=== PATIENT | female | born 1975 | race Hispanic/Latino ===

== ENCOUNTER 2016-12-18 02:29 | Inpatient (IN) | payer OTHER ==
[~2016-12-18] VITALS: Ht 154.9 cm; Wt 68.0 kg
[2016-12-18 02:41] VITALS: BP 121/86; PULSE 84; RESP 15; O2SAT 99
--- NOTE | 2016-12-18 03:04 | ED.REPORT ---
HPI-Abd Pain F 40 and Over Date of Service December 18, 2016 ED Provider: Flex Turner MD A healthy 41 year old female presents to the ED with worsening epigastric abdominal pain onset 2100, one hour after eating. Associated symptoms include nausea and vomiting. The patient denies diarrhea, dysuria, or other symptoms. She has had similar symptoms in the past, although less severe. Nursing Notes Stated Complaint: ABDOMINAL PAIN Chief Complaint: Female Abdominal Pain Nursing Notes Reviewed: Yes Allergies: Coded Allergies: codeine (Verified Allergy, Intermediate, RACING HEART, 12/18/16) General Time Seen by MD: 03:02 Chief Complaint Abdominal pain Hx Obtained From: Patient Arrived By: Walk-in Sudden in Onset?: No Onset Occurred: 5 - 8 hours ago Symptom Duration: Since onset Progression since Onset: Gradually worsening Location: : Epigastric Quality: Painful Severity: Current: Moderate Severity: Maximum: Moderate Pertinent Negative: Relieved by nothing Recent Healthcare: No recent doctor visit Similar Sx Previous: Yes Past Medical History Past Medical History Notes: PCP: Danish Noble Past Medical History Healthy otherwise Past Surgical History None reported Family History Gallstones Smoking History Current Some Day Smoker Social History Alcohol Use: Denies alcohol use Drug Use: Denies drug use Other Social History: Good social support Ambulatory Status Independent Review of Systems Constitutional: Denies: Fever Respiratory: Denies: Non-productive cough, Shortness of breath GI: Reports: Abdominal pain (Epigastric), Nausea, Vomiting, Denies: Diarrhea Female: Denies: Dysuria Complete sys rev & neg: except as marked. Physical Exam Vital Signs Vital Signs (First) Date Time Temp Pulse Resp B/P Pulse Ox O2 Delivery O2 Flow Rate FiO2 12/18/16 02:41 36.1 84 15 121/86 99 Room Air Initial VS: Reviewed, Vital signs normal Head / Eyes: Atraumatic, Normocephalic ENT: Conjunctiva normal, No scleral icterus Neck: Supple, Full range of motion Skin: Warm, Dry, No cyanosis Neurologic: Alert, Oriented, Nonfocal Psychiatric: Mood/affect normal, Behavior normal, Normal thought content General/Constitutional: Awake, Alert Respiratory / Chest: Breath sounds NL, Breath sounds = bilat, No respiratory distress Cardiovascular: Heart rate NL, Regular rhythm, Heart sounds NL Abdomen: Soft Tenderness/Guarding/Rebound: Positive: Tender epigastric Interpretation & Diagnostics URINE DIPSTICK: Bedside Urine Specific [place] * 1.010 Bedside Urine pH * 7 Bedside Urine Leukocyte Esterase * Negative Bedside Urine Nitrite * Negative Bedside Urine Protein * Negative Bedside Urine Glucose * Normal Bedside Urine Ketones * Negative Bedside Urine Urobilinogen * Normal Bedside Urine Bilirubin * Negative Bedside Urine Occult Blood * Trace Urine to Lab * Yes US ABDOMEN: 1. No ultrasound evidence of cholelithiasis or cholecystitis. Report transmitted to ED by radiologist Ole Aguirre M.D. at 12/18/2016 - 5: 34:16 AM PDT Lab Results Interpretation Result Diagram: 12/18/16 0325 12/18/16 0325 Test 12/18/16 03:25 12/18/16 04:50 White Blood Count 11.8th/mm3 (3.8-10.1) Red Blood Count 5.19mil/mm3 (3.90-5.20) Hemoglobin 14.5g/dL (12.0-15.6) Hematocrit 42.1% (35.0-46.0) Mean Corpuscular Volume 81.1fL (81-100) Mean Corpuscular Hemoglobin 27.9pg (27.0-35.0) Mean Corpuscular Hemoglobin Concent 34.4% (32.0-37.0) Red Cell Distribution Width 13.5% (12.3-15.4) Platelet Count 307bil/L (150-400) Neutrophils (%) (Auto) 73.0% (40-74) Lymphocytes (%) (Auto) 17.6% (14-46) Monocytes (%) (Auto) 8.0% (4-12) Eosinophils (%) (Auto) 0.8% (0-5) Basophils (%) (Auto) 0.3% (0-3) Sodium Level 139mEq/L (134-144) Potassium Level 4.0mEq/L (3.5-5.2) Chloride Level 102mEq/L (97-108) Carbon Dioxide Level 23mmol/L (18-29) Blood Urea Nitrogen 17mg/dL (6-24) Creatinine 0.64mg/dL (0.57-1.00) Estimat Glomerular Filtration Rate 146mL/min (>59) Glucose Level 143mg/dL (60-99) Calcium Level 10.0mg/dL (8.5-10.1) Magnesium Level 2.3mg/dL (1.6-2.6) Total Bilirubin 0.8mg/dL (0.0-1.2) Aspartate Amino Transf (AST/SGOT) 335U/L (0-50) Alanine Aminotransferase (ALT/SGPT) 150U/L (0-32) Alkaline Phosphatase 115U/L (25-150) Total Protein 8.2g/dL (6.4-8.4) Albumin 4.2g/dL (3.4-5.0) Lipase 30U/L (13-60) Hold Bassett Top Tube Received (Received) Urine Color Dark yellow (YELLOW) Urine Appearance Hazy (CLEAR,HAZY) Urine pH 7.5 (5.0-8.0) Urine Specific [place] 1.015 (1.003-1.035) Urine Protein Negativemg/dL (NEG,TRACE) Urine Glucose (UA) Negativemg/dL (NEGATIVE) Urine Ketones Negativemg/dL (NEGATIVE) Urine Occult Blood Trace (NEGATIVE) Urine Nitrite Negative (NEGATIVE) Urine Bilirubin Negative (NEGATIVE) Urine Urobilinogen 1.0mg/dL (NORMAL) Urine Leukocyte Esterase Negative (NEGATIVE) Urine RBC 0-2/hpf (0-2) Urine WBC 0-5/hpf (0-5) Urine Epithelial Cells Moderate/hpf (NONE-MOD) Urine Crystals None seen (NONE SEEN) Urine Bacteria Few/hpf (NONE-FEW) Urine Hyaline Casts None/lpf (NONE) Urine Granular Casts None seen (NONE SEEN) Urine Waxy Casts None seen (NONE SEEN) Urine Red Blood Cell Casts None seen (NONE SEEN) Urine White Blood Cell Casts None seen (NONE SEEN) Urine Mucus Present (None Seen) Urine Trichomonas None seen (NONE SEEN) Urine Yeast None (NONE SEEN) Urinalysis Comment None Urine Culture Reflexed Not indicated Hold Urine Received (Received) Lab Results Interpretation: Elevated white blood count, elevated transaminases, normal lipase Re-Eval/Medical Decision Med Decision/Clinical Course 41-year-old female who denies any history of drug use, alcohol use, or gallbladder disease. She has never been told that she has hepatitis. She presents now with upper abdominal pain, elevated transaminases, and mildly elevated white count. Ultrasound is negative for any gallbladder disease. CT is currently pending. Care will be turned over at change of shift to Dr. Gold Ruano. Re-Evaluation/Progress #1: Time of Eval: 04:07 Patient Status: Condition improved Re-Evaluation/Progress Note: Discussed with patient lab results and plan for US. She agrees with plan for care and all questions were addressed. Re-Evaluation/Progress #2: Time of Eval: 05:45 Patient Status: Condition improved Re-Evaluation/Progress Note: Discussed with patient US result and plan for CT with transfer of care to Dr. Pittman at change of shift. Patient agrees with plan for care and all questions were addressed. Counseled Regarding: Diagnosis, Lab results Discharge & Departure Shift Change Sign-Out Patient Care Transferred: Yes (Dr. Pittman) Discussed Complaint(s): Yes Laboratory Evaluation: Lab evaluation discussed Imaging Studies: Ordered, not yet done Response to Therapy: Improved Primary Impression: Abdominal pain Abdominal location: epigastric Qualified Code: R10.13 - Epigastric pain Referrals: Danish Noble ND (PCP) Care Transferred to: Dr. Pittman Care Transferred at: 06:00 [place] Attestation Portions of this note were transcribed by Suzette Theodore. I, Dr. Turner, personally performed the history, physical exam, and medical decision-making; I reviewed and confirmed the accuracy of the information in the transcribed note. Signed by: Velasquez Hoyt, 12/18/2016, 06:15 copies to: Danish Noble ND, Howard L MD December 18, 2016 03:04 SUZETTE THEODORE December 18, 2016 03:12
[2016-12-18] MEDS ORDERED: 0.9% Sodium Chloride 1,000 ML IV ONE (03:10)
[2016-12-18] MEDS ORDERED: Ondansetron 2 mg/mL 2 mL Inj IVPUSH PRN (03:10)
[2016-12-18 03:32] LABS: BASOPHILS % (AUTO) 0.3 % (0-3); EOSINOPHILS % (AUTO) 0.8 % (0-5); Mean Corpuscular Hemoglobin 27.9 pg (27.0-35.0); Mean Corpuscular Volume 81.1 fL (81-100); Platelet Count 307 bil/L (150-400)
[2016-12-18 03:55] LABS: Magnesium 2.3 mg/dL (1.6-2.6)
[2016-12-18 06:16] VITALS: BP 122/82; PULSE 80; RESP 16; O2SAT 100
[2016-12-18 06:16] LABS: APPEARANCE,URINE HAZY (CLEAR,HAZY); COLOR,URINE DARK YELLOW (YELLOW); OCCULT BLOOD,URINE TRACE (NEGATIVE); PH,URINE 7.5 (5.0-8.0)
[2016-12-18] MEDS ORDERED: HYDR-4003 PO (07:01)
[2016-12-18 07:45] LABS: INR 0.93 ratio
--- NOTE | 2016-12-18 08:23 | DRSVH ---
PROCEDURE: CT ABDOMEN AND PELVIS WITH CONTRAST ([id number]) INDICATIONS: abd pain, elev WBC and LFT, normal US TECHNIQUE: After the administration of oral and intravenous contrast, 5 mm thick sections acquired from the diap hragms to the symphysis. 5 mm thick coronal and sagittal reformats were performed. For radiation do se reduction, the following was used: automated exposure control, adjustment of mA and/or kV accordi ng to patient size. COMPARISON: None. FINDINGS: Image quality: Excellent. ABDOMEN: Lung bases: Lung bases are clear. Heart size is normal. Solid organs: Liver and spleen are normal in size and enhancement. Gallbladder contains small galls tones. Biliary system is non-dilated. There is a small density at the expected level of the ampulla the common bile duct may represent choledocholithiasis Pancreas enhances normally. No adrenal nodule s. Kidneys are normal in size and enhancement, without hydronephrosis. Peritoneum and bowel: Stomach, small bowel, and colon loops are normal in caliber and wall thickness . No free fluid or air. The appendix is normal. Nodes and vessels: No retroperitoneal or mesenteric adenopathy. Aorta and inferior vena cava are no rmal in caliber. Miscellaneous: No ventral hernias. PELVIS: Genitourinary: Bladder wall thickness is normal. Miscellaneous: No inguinal hernias or adenopathy. Bones: No suspicious bony lesions. No vertebral body compression fractures. IMPRESSION: 1. Possible 1 mm stone in the distal common bile duct level of the ampulla. Recommend MRCP and gastro enterology consult. 2. Cholelithiasis. 3. No free fluid or air. 4. No dilated loops of bowel. 5. Findings telephoned to Dr. Jayson Pittman on 12/18/2016 at 0821 hours. Dictated by: Tania Perez MD, PhD on 12/18/2016 at 7:59 Approved by: Tania Perez MD, PhD on 12/18/2016 at 8:22
[2016-12-18] MEDS ORDERED: Vancomycin Dose per Pharmacist XX SCH (08:30)
--- NOTE | 2016-12-18 09:14 | DRSVH ---
PROCEDURE: US ABDOMEN, LIMITED ([id number]) INDICATIONS: cholecystitis TECHNIQUE: Real-time focused scanning was performed of the abdomen, with image documentation. COMPARISON: None. FINDINGS: Gallbladder wall is normal, and no gallstones seen, no biliary distention suspected. IMPRESSION: Normal limited right upper quadrant evaluation. Dictated by: Noah Saeed M.D. on 12/18/2016 at 9:12 Approved by: Noah Saeed M.D. on 12/18/2016 at 9:12
[2016-12-18 09:47] VITALS: BP 112/74; PULSE 78; RESP 16; O2SAT 98
[2016-12-18] MEDS ORDERED: fentaNYL-PF 50 mCg/mL 2 mL Inj IVPUSH PRN (10:25)
--- NOTE | 2016-12-18 10:32 | PCM.HPMED ---
Subjective Date of Service December 18, 2016 Primary Provider: Admitting Physician: Lawanda Shah MD Primary Care Physician: Danish Noble ND Attending Physician: Lawanda Shah MD Chief Complaint: Epigastric pain, nausea History of Present Illness: 41-year-old female with no past medical history resided with sudden onset of epigastric pain, nausea, started last night after dinner. Patient was in usual state of health until last night, she had heavy cheeseburger, started feeling heaviness on the epigastric area, pain was progressively worsened throughout the night, felt nauseous, vomiting and dry heaves. Pain was persistent, did not radiated to back, 8-9 out of 10, achy feeling. Patient had similar episode about a month ago, but spontaneously resolved. Patient is not drinking alcohol Emergency department, VS are stable MA502q, HR84, afebrile, RR15, 99%on RA, pt only received IVF. US showed normal hepatobiliary tract. CT abd showed 1mm stone in possible distal CBD, cholelithiasis. GI was consulted On the floor, pt looked comfortable, denied n/v, epigastric pain. ROS: no fever chills, chest pain, cough, sputum, constipation, diarrhea, recent sick contact or travel Review of Systems: Pertinent positives as noted in history of present illness. All other systems were reviewed and are negative Allergies Coded Allergies: codeine (Verified Allergy, Intermediate, RACING HEART, 12/18/16) Home Medications Not taking any medicine PMH No past medical history Surgical History 20 years ago Tubal ligation 17 years ago Family History Father had heart attack, of bleeding ulcer Mother has hypertension Social History Hx Alcohol Use: No Hx Substance Use: No Hx Tobacco Use: No Smoking Status: Current Some Day Smoker Additional Information Lives with mom Exam Vital Signs Vital Sign - Last Date Time Temp Pulse Resp B/P Pulse Ox O2 Delivery O2 Flow Rate FiO2 12/18/16 09:47 35.8 78 16 112/74 98 Room Air Intake and Output 12/17/16 12/17/16 12/18/16 Cumulative From/Thru 15:00 23:00 07:00 12/18/16 02:41 - 12/18/16 03:28 Intake Total 1000 ml 1000 ml Balance 1000 ml 1000 ml Intake IV Total 1000 ml 1000 ml Exam NAD, comfortably laying down on the bed no JVD, MMM, no LAD RRR, nl s1, s2 no mrg CTAB, no w,c S,ND,NT,normoactive BS+ warm, no edema, pulses 2/2 Lab and Diagnostics Result Diagram: 12/18/1632412/18/16324 Assessment & Plan 41-year-old female with no past medical history resided with sudden onset of epigastric pain, nausea, started last night after dinner. Acute, active Acute onset epigastric pain, nausea, vomiting, likely due to cholelithiasis, POA , abd negative for acute cholecystitis, CT suggested remaining CBD stone distally near ampula, labs showed mild transaminitis. non-obstructive with normal bilirubin. Given unremarkable symptoms/exam, it's possible that stone has already passed -appreciate GI consult, MRCP or ERCP, possible consult to surgery -hold off on abx for now -trends LFTs -added viral hep panel -ns 100cc/hr -pain control will try fentanyl given codeine allergy, dispo:Patient will be admitted with observation status with expectation of inpatient therapy for less than 2 midnights diet: Nothing by mouth for now dvt ppx: SCD Full code Time spent 65 minutes Lawanda Shah MD December 18, 2016 10:32
[2016-12-18] MEDS: D5 0.45% NaCl + KCl 20 mEq/L 1,000 ML IV SCH ×2 (11:22→22:41)
[2016-12-18 12:47] VITALS: BP 114/76; PULSE 88; RESP 16; O2SAT 99
--- NOTE | 2016-12-18 15:54 | NUR ---
[facility] [place] Patient arrived form ER at 0915, came in with n/v and abdominal pain. CT (+) done in ER, appears gallstone. LABS- WBC 11.8 ALT 150, AST 335. Patient currently denies pain or nausea. IV D51/2 20K @ 100. Patient resting quietly in bed, NPO, awaiting GI consult. Dr Shah has seen and examined patient. Admit complete, mother and family in room.
[2016-12-18 16:29] LABS: BASOPHILS % (AUTO) 0.5 % (0-3); EOSINOPHILS % (AUTO) 1.5 % (0-5); MONOCYTES % (AUTO) 8.6 % (4-12); Mean Corpuscular Hemoglobin 27.6 pg (27.0-35.0); Mean Corpuscular Volume 82.2 fL (81-100); NEUTROPHILS % (AUTO) 63.7 % (40-74); Platelet Count 280 bil/L (150-400)
[2016-12-18 17:17] VITALS: BP 130/84; PULSE 68; RESP 16; O2SAT 100
--- NOTE | 2016-12-18 19:55 | DRSVH ---
PROCEDURE: MR ABDOMEN MRCP INDICATIONS: cbd stone TECHNIQUE: Coronal HASTE through the abdomen, axial 2-D FLASH in- and [id number], and breath-hold T2 FSE with fat saturation through the biliary system and pancreas. Oblique coronal and axial thin-slice HASTE, radial thick-slab HASTE centered on the extrahepatic bile ducts. Intravenous secretin: Not requested. COMPARISON: CT and ultrasound from December 18, 2016. FINDINGS: Image quality: Adequate. Pancreas and biliary system: Intra- and extra-hepatic biliary ducts are non dilated. There is a fill ing defect in the proximal common bile duct ( se 14 im 60) measuring 4 mm. There is no filling defect in the distal common bile duct to correspond with the questioned CT finding from earlier today. Panc reas is normal in morphology, without adjacent soft tissue edema. Pancreatic duct is not definitely identified. There are linear filling defects in the gallbladder (for example se 5 im 12. Other solid organs: Liver and spleen are normal in size. Tiny benign simple hepatic cyst. No adrenal nodules. Both kidneys are normal in size, without hydronephrosis. Nodes and vessels: No retroperitoneal or mesenteric adenopathy by size criteria. Aorta and inferior vena cava are normal in size. IMPRESSION: 1. There is a 4 mm area of decreased signal in the proximal common bile duct as described above which may represent choledocholithiasis. Consider ERCP for confirmation. There is no filling defect in the distal common bile duct correspond to the questioned CT finding earlier today. There is no intra-or extrahepatic bile duct dilatation. 2. Linear filling defects in the gallbladder may represent unusual gallbladder sludge or gallbladder wall thickening and edema. Acute cholecystitis is possible although CT and ultrasound earlier today w ere normal. A HIDA scan could evaluate this finding if clinical exam of the gallbladder is indetermin ate. Dictated by: Isac Toro M.D. on 12/18/2016 at 19:37 Approved by: Isac Toro M.D. on 12/18/2016 at 19:48
[2016-12-18] MEDS ORDERED: 0.9% Sodium Chloride 100 ML ONE (20:14)
[2016-12-18] MEDS ORDERED: Famotidine Inj 20 MG in IV Premix 1 EACH IV SCH (20:30)
[2016-12-18] MEDS ORDERED: Piperacillin-Tazo 3.375 Gm Inj 3.375 GM in Dextrose 5% Minibag Plus 50 ML IV ONE (21:15)
--- NOTE | 2016-12-18 22:49 | CONS ---
[address] [address] CONSULTATION REPORT PATIENT: KAROLINE MORALES : 1975 MR#: [id number] ADMIT: 12/18/2016 JOB ID: [id number] DATE OF SERVICE: PHYSICIAN REQUESTING CONSULTATION: Lawanda Shah MD REASON FOR CONSULTATION: Epigastric pain and abnormal LFTs. HISTORY OF PRESENTING ILLNESS: The patient is a 41-year-old woman, who essentially has no past medical history. She states that she apparently has been well up until about a month ago, when she had an episode of epigastric pain not associated with any nausea, vomiting, and non radiating, that felt colicky in nature and lasted for several hours. The pain resolved on its own. She states the pain started approximately an hour to hour and a half following a meal. She then states that she was well up until yesterday evening, when following a meal that consisted of tamales followed by a cheeseburger and ice cream, she developed epigastric pain without radiation to the back or right upper quadrant and not associated with any nausea or vomiting. She states the pain lasted for several hours, and as she was not able to get relief, she presented to the emergency department. She denied any associated fevers, chills, or sweats. She denied starting any new medications. She denied taking any NSAIDs. On admission to the emergency department, she was afebrile with normal vital signs. Her laboratory data did show a mildly elevated white blood cell count of 11.8 with a normal differential and subsequent repeat is normal. Her coagulation, which occluded a PT and INR, was normal. Chemistries showed that her total bilirubin increased from 0.8 to 2.5, and her AST increased to 513 from 335. Her ALT increased from 150 to 434. Alkaline phosphatase was normal. Urinalysis showed moderate epithelial cells, and some mucus present, but otherwise unremarkable. She has had an ultrasound of the abdomen, which was reported as being normal. This was then followed by a CT scan, which revealed normal appearing liver and spleen. Gallbladder contained small gallstones. Biliary system is nondilated and potentially a small density at the level of the ampulla. The patient, however, upon my interview, currently denies any pain, nausea, vomiting. States she is hungry and would like to eat and then possibly go home. PAST MEDICAL HISTORY: None. PAST SURGICAL HISTORY: Includes . FAMILY HISTORY: Noncontributory. SOCIAL HISTORY: Denies any alcohol use. Rare tobacco use. She lives with her mom. She has multiple tattoos. Denies any history of intravenous drug use or history of blood transfusions. HOME MEDICATIONS: None. ALLERGIES: CODEINE. REVIEW OF SYSTEMS: Her 10-point review of systems is otherwise unremarkable. PHYSICAL EXAMINATION: She was she is afebrile with a temperature of 36.6, her pulse is 68, blood pressure is 130/84, respiratory rate is 16 with O2 saturation 100% on room air. Generally, she is an obese, middle-aged appearing woman in no apparent distress. She is oriented to person, place, and time. Answers questions appropriately. HEENT: No pallor. No icterus. Oropharynx is clear. Chest exam is clear to auscultation bilaterally. Cardiovascular exam: S1, S2 heard. Abdomen is obese, soft, nontender, nondistended, without hepatosplenomegaly. Extremities: Without edema. Laboratory data as discussed above. ASSESSMENT AND PLAN: A 41-year-old woman with cholelithiasis and cholestatic LFTs. Will await magnetic resonance cholangiopancreatography to rule out choledocholithiasis. In addition, would obtain an acute hepatitis panel to rule out acute viral hepatitis. Would have her continue a clear liquid diet. If she should become febrile, would recommend starting broad-spectrum antibiotics and then call me immediately. I did discuss with the patient and her fiancee and mother in detail regarding laboratory findings, CT and ultrasound findings, and the possible need for endoscopic retrograde cholangiopancreatography if MRI shows evidence of choledocholithiasis. They stated understanding. Plan of care was also discussed with patient's nurse, and I will discuss this with Dr. Shah as well. Thank you for allowing me to participate in this patient's care. If you have any further questions, please do not hesitate to contact me. SALO
[2016-12-19] VITALS (13 sets, daily range): BP systolic 107–135; BP diastolic 66–90; PULSE 57–90; RESP 13–21; O2SAT 97–100
[2016-12-19 03:12] LABS: Hepatitis A Antibody IgM Negative (Negative); Hepatitis B Core Antibody IgM Negative (Negative)
--- NOTE | 2016-12-19 03:28 | NUR ---
No complaints of nausea or pain during shift. Pt able to ambulate to restroom independently with steady gait. Pt resting comfortably in bed and able to turn on own. Family in room during evening. Pt uses call light appropriately, ambulates independently with steady gait. Hourly rounding continues.
[2016-12-19 05:45] LABS: EOSINOPHILS % (AUTO) 4.5 % (0-5); MONOCYTES % (AUTO) 9.9 % (4-12); Mean Corpuscular Hemoglobin 27.9 pg (27.0-35.0); Mean Corpuscular Volume 82.9 fL (81-100); NEUTROPHILS % (AUTO) 52.6 % (40-74); Platelet Count 260 bil/L (150-400)
[2016-12-19] MEDS ORDERED: 0.9% Sodium Chloride 100 ML ONE (06:24)
[2016-12-19] MEDS ORDERED: Piperacillin-Tazo 3.375 Gm Inj 3.375 GM in Dextrose 5% Minibag Plus 50 ML IV SCH (06:30)
[2016-12-19] MEDS ORDERED: Neostigmine 1 mg/mL 10 mL Inj ONE (09:31)
[2016-12-19] MEDS ORDERED: Phenylephrine/NS 100 mCg/mL 10 mL Syringe IVPUSH ONE (09:31)
[2016-12-19] MEDS ORDERED: Dexamethasone 4 mg/mL Inj ONE (09:31)
[2016-12-19] MEDS ORDERED: fentaNYL-PF 50 mCg/mL 2 mL Inj ONE (09:31)
[2016-12-19] MEDS ORDERED: Glycopyrrolate 0.2 MG/ML 1mL Inj ONE (09:31)
[2016-12-19] MEDS ORDERED: Propofol 10,000 mCg/mL 20 mL Inj ONE (09:31)
[2016-12-19] MEDS ORDERED: Rocuronium 10 mg/mL 5 mL Inj ONE (09:31)
[2016-12-19] MEDS ORDERED: Ondansetron 2 mg/mL 2 mL Inj ONE (09:31)
--- NOTE | 2016-12-19 09:33 | PCM.PNMED ---
Subjective Date of Service December 19, 2016 Subjective pt was not afebrile, asymptomatic, kept in NPO after MN bilirubin increased, LFT peaked last night then trending down MRCP showed new filling defect in CBD, possible acute giorgio awaits probable ERCP by Dr.Al Cuevas surgery also consulted Exam Vital Signs Vital Sign - Last Date Time Temp Pulse Resp B/P Pulse Ox O2 Delivery O2 Flow Rate FiO2 12/19/16 07:26 36.7 63 17 122/78 97 Room Air Intake and Output 12/18/16 12/18/16 12/19/16 Cumulative From/Thru 15:00 23:00 07:00 12/18/16 02:41 - 12/18/16 19:06 Intake Total 704 ml 1704 ml Balance 704 ml 1704 ml Intake IV Total 704 ml 1704 ml Exam NAD, comfortably laying down on the bed no JVD, MMM, no LAD RRR, nl s1, s2 no mrg CTAB, no w,c S,ND,NT,normoactive BS+ warm, no edema, pulses 2/2 Lab and Diagnostics Result Diagram: 12/19/16 0530 12/19/16 0530 Assessment & Plan 41-year-old female with no past medical history resided with sudden onset of epigastric pain, nausea, started last night after dinner. Acute, active Acute onset epigastric pain, nausea, vomiting, likely due to cholelithiasis, POA , initially abd US negative for acute cholecystitis, CT suggested remaining CBD stone distally near ampula, labs showed mild transaminitis. non-obstructive with normal bilirubin. follow up MRCP showed new filiing defect 4 mm area of decreased signal in the proximal common bile duct. possible acute cholecystitis. -pt clinically stable, however, labs showed obstructive, viral hap panel negative. LFts trending down. -appreciate GI consult, probable ERCP, kept NPO -appreciate surgery input -started zosyn yesterday, continue for now -trends LFTs, bilirubin -added viral hep panel -ns 100cc/hr -pain control will try fentanyl given codeine allergy, dispo:likely 1-2more days, pending diet: Nothing by mouth for now dvt ppx: LMWH Full code Time spent 35min Lawanda Shah MD December 19, 2016 09:29
--- NOTE | 2016-12-19 09:53 | NUR ---
GI GI doctor at bed side and states," she can have clear liquids until noon." patient aware that NPO after 1200. Deneis pain or discomfort.
[2016-12-19] MEDS: Famotidine Inj 20 MG in IV Premix 1 EACH IV SCH ×2 (11:03→21:15)
--- NOTE | 2016-12-19 12:05 | NUR ---
NPO Patient is NPO at 1200 per GI doctor orders.
--- NOTE | 2016-12-19 14:04 | CONS ---
[address] [address] CONSULTATION REPORT PATIENT: KAROLINE MORALES : 1975 MR#: [id number] ADMIT: 12/18/2016 JOB ID: [id number] DATE OF SERVICE: 12/19/2016 CHIEF COMPLAINT: Cholelithiasis and choledocholithiasis. HISTORY OF PRESENT ILLNESS: The patient is a 41-year-old female, who was admitted to the hospital yesterday due to abdominal pain. The patient has had epigastric pain about a month ago which lasted 2 hours and then went away. The patient had a recurrence of this epigastric pain about two nights ago. This was after dinner. It was in the epigastric location. She did have nausea, vomiting and she describes difficulty breathing and taking a deep breath. Due to the persistence of the discomfort and ongoing nausea and vomiting, the patient presented to the emergency department yesterday and underwent workup with abdominal ultrasound and CT and an MRCP. The abdominal ultrasound shows no obvious gallstones. However, the abdominal CT scan shows a possible stone in the distal common bile duct and cholelithiasis. The MRCP done yesterday showed a 4 mm decreased signal in the proximal common bile duct possibly representing choledocholithiasis. There are linear filling defects in the gallbladder which may represent sludge or gallbladder wall thickening or edema. Since admission to the hospital, the patient's pain has pretty much resolved. However, her liver function tests have risen and her total bilirubin has gone from 0.8 up to 2.5 and up to 2.7 this morning. PAST MEDICAL HISTORY: 1. . 2. Tubal ligation. MEDICATIONS: None. ALLERGIES: To CODEINE. SOCIAL HISTORY: She lives in [place] with her mom. She has a fiancee. She has four children. She does not work. She does not smoke. FAMILY HISTORY: Positive for hypertension, arthritis and diabetes. REVIEW OF SYSTEMS: Positive for the epigastric abdominal pain and nausea, vomiting and all other systems reviewed were negative. PHYSICAL EXAMINATION: The patient is currently comfortable in the hospital bed, in no acute distress. Her BMI is 28.3. Head is normocephalic, atraumatic. There is no scleral icterus. Neck is supple. Heart is regular rate. Lungs are clear. Abdomen is slightly obese. It is soft and nontender this morning. There is no epigastric tenderness on palpation. Extremities shows no clubbing and no cyanosis. Neurologically, the patient is awake and alert and follows commands. LABORATORY EXAMINATION: Yesterday showed a white blood count of 11.8, and it has come down to 6.1, hematocrit 37.8, platelet count is 260. Her sodium this morning is 139, potassium 4.5. Her total bilirubin has gone from 0.8 and gone up to 2.7 this morning. Her AST is 264, ALT is 352, alkaline phosphatase is 155. Her lipase yesterday was 30. Her INR is 0.93. Again her MRCP report shows a possible decreased signal in the proximal common bile duct which may represent choledocholithiasis. The CT scan report from yesterday does show cholelithiasis and possible stone in the distal common bile duct. ASSESSMENT: This is a 41-year-old female with cholelithiasis and possible choledocholithiasis. The patient has rising total bilirubin. GI was consulted yesterday and will followup. RECOMMENDATION: Is for GI service to proceed to ERCP at some point. The patient should be maintained on IV antibiotics. Once her common bile duct has been cleared, then we can take her to the OR for a laparoscopic cholecystectomy.
--- NOTE | 2016-12-19 14:14 | NUR ---
NPO Addendum: 12/19/16 at 1415 by BONIFACIO EVANS RN Amended: Links added.
[2016-12-19] MEDS: D5 0.45% NaCl + KCl 20 mEq/L 1,000 ML IV SCH ×2 (14:58→15:03)
--- NOTE | 2016-12-19 15:23 | NUR ---
Mentation Patient is alert and oriented X3. Able to make needs known. Stable vital signs and oxygenation. Denies pain or discomfort so far this shift. Ambulating to bathroom as needed and steady on feet. Denies nausea or vomiting at this time. GI Dr. Leong saw patient and orders are NPO after 1200 for ERCP. Family at bed side. Call light with in reach for safety. Stable mood. Continuous on IV ABO as ordered. No adverse effects noted due to IV ABO. Stable mood. Continue to monitor for abdominal pain, vital signs, and safety.
--- NOTE | 2016-12-19 17:08 | NUR ---
Off to Endo Patient off unit for scope procedure to endo.
[2016-12-19] MEDS ORDERED: Lactated Ringer's 1,000 ML IV SCH (18:56)
[2016-12-19] MEDS ORDERED: Lactated Ringer's 500 ML IV PRN (18:56)
[2016-12-19] MEDS ORDERED: EPHEDrine Sulfate 50 mg/mL Inj IVPUSH PRN (19:00)
[2016-12-19] MEDS ORDERED: Labetalol 5 mg/mL 4 mL Inj IV PRN (19:00)
[2016-12-19] MEDS ORDERED: Ondansetron 2 mg/mL 2 mL Inj IVPUSH PRN (19:00)
[2016-12-19] MEDS ORDERED: Phenylephrine 10,000 mCg/mL Inj IVPUSH PRN (19:00)
[2016-12-19] MEDS: Piperacillin-Tazo 3.375 Gm Inj 3.375 GM in Dextrose 5% Minibag Plus 50 ML IV SCH (19:00)
[2016-12-19] MEDS ORDERED: fentaNYL-PF 50 mCg/mL 2 mL Inj IVPUSH PRN (19:00)
[2016-12-19] MEDS ORDERED: Atropine 0.4 mg/mL Inj IVPUSH PRN (19:00)
[2016-12-19] MEDS ORDERED: MetoCLOpramide 5 mg/mL 2 mL Inj IVPUSH PRN (19:00)
[2016-12-19] MEDS ORDERED: HYDROmorphone 1 mg/mL Inj IVPUSH PRN (19:00)
--- NOTE | 2016-12-19 19:04 | PCM.HPANE ---
Patient Data Surgeon Admitting Provider:Lawanda Shah MD Attending Provider:Lawanda Shah MD Primary Care Physician:Danish Noble ND Other Provider: Reason for Visit Biliary Colic And Evevated Lfts Ht/WT & BMI Height (Feet): 5 Height (Inches): 1.00 Weight (Kilograms): 68.000 Body Mass Index 28.00 Allergies Coded Allergies: codeine (Verified Allergy, Intermediate, [facility], 12/18/16) Past Anesthesia History Anesthesia History: Denies:: Abnormal Airway, Anesthesia Reactions, Difficult Intubation, Fam Anesthesia Reaction, Fam Malignant Hypertherm, Malignant Hyperthermia Diabetes History Hx Diabetes?: No MRSA MRSA: No Medications Discontinued Scripts Hydrocodone-Acetaminophen 5-325 mg 1 Each Tablet1 Tablet PO Q4H PRN For Pain # 10 TABLET Prov:Jayson Pittman MD 12/18/16 History History of ENT Problems?: No HEENT History: Denies:: Abnormal Airway Cataracts Difficult Intubation Dysphagia Glaucoma Hearing Problem Sinus Problem TMJ Denture Type: None Teeth Condition: Within Normal Limits Hx of Heart Problems?: No Cardiovascular History: Denies:: AICD Abdominal Aortic Aneurism Atrial Fibrillation Cardiac Surgery Chest Pain Congestive Heart Failure Coronary Artery Disease Edema Heart Murmur Hypertension Irregular Heartbeat Pacemaker Peripheral Vascular Rheumatic Fever Thrombophlebitis Valvular Heart Disease Hx of Respiratory Problem?: No Respiratory History: Denies:: Asthma COPD Chest Surgery Cough Dyspnea Emphysema Hemoptysis Oxygen Administration Pneumonia Pulmonary Embolism Tuberculosis Use of C-PAP Machine Use of Inhalers / NEBS Hx Neurologic Problems?: No Neurological History: Positive for:: Headaches Denies:: Alzheimer's Disease CVA Dementia Dizziness Multiple Sclerosis Parkinson's Disease Peripheral Neuropathy Seizures TIA Hx of GI Problems?: No Gastrointestinal History: Denies:: Cirrhosis Diverticulitis Gall Bladder Disease Gastroesphageal Reflux Gastrointestinal Bleeding Heartburn Hepatitis Hiatal Hernia Liver Disease Rectal Bleeding Hx of Problems?: No Genitourinary History: Denies:: HX of Hemodialysis Kidney Stones Urinary Tract Infection HX of Peritoneal Dialysis: No Female Hx: Positive for:: Endometriosis Denies:: Currently Pelvic Inflammatory Skin History: Denies:: History Skin Disorders? Pressure Ulcers Hx Musculoskeletal Problems?: No Musculoskeletal History: Denies:: Back Injury Degenerative Joint Fibromyalgia Joint Replacement Musculoskeletal Trauma Myasthenia Gravis Osteoarthritis Rheumatoid Arthritis Systemic Lupus Hx of Psycho/Social Problems?: No Psycho Social History: Denies:: Anxiety Bipolar Disorder Hx Depression Suicide Attempt Hx Surgeries?: Yes (C section and tube ligation) Hx Any Other Health Problems?: No History Blood Transfusions: Positive for:: Accept Blood Products? Denies:: Blood Transfuse Reaction Blood Transfusions Hx Diabetes: No Hx Alcohol Use: NoHx Substance Use: No Smoking Status: Current Some Day Smoker Have You Smoked inLast 12 mo: No Stop/Bang Treated for Sleep Apnea?: No Do You Have a CPAP Machine?: No S-Snoring: Do You Snore Loudly: No T-Tired: feel tired, fatigued: No O-Obsered: Observed not breath: No P-Blood Pressure: treated: No B- Body Mass Index > 35 kg/m2: No A- Age over 50: No N- Neck Large Circumference: No G- Gender Male: No ABA Total Score: 0 Risk Assessment Category Category 1A: Patient has history of documented sleep apnea, and HAS NOT received any narcotic, sedative or anesthesia administration during this stay. Category 1B: Patient has history of documented sleep apnea, and HAS received any narcotic , sedative or anesthesia administration during this stay Category 2: Patient has SUSPECTED Obstructive Sleep Apnea, and HAS received any narcotic , sedative or anesthesia administration during this stay. Category 3: Patient has SUSPECTED Obstructive Sleep Apnea and HAS NOT received narcotic, sedative or anesthesia administration during this stay. Category 4: Outpatient in Procedural Areas with known sleep apnea or who screen positive for High Risk via the STOP/BANG questionnaire. Exam Exam Vital Signs Vital Signs Date Time Temp Pulse Resp B/P Pulse Ox O2 Delivery O2 Flow Rate FiO2 12/19/16 12:04 36.9 82 15 132/82 100 Room Air General Appearance: Alert, Oriented X3 HEENT/AIRWAY: MP 2, Neck Movement (FROM), Mouth Opening (3 FBMO) Lungs: Clear to Percussion Heart: Regular Rate/Rhythm Meds/Labs/Diagnostics Admission Meds Current Medications Enoxaparin Sodium 40 mg 40 mg DAILY SUBQ Last administered on 12/19/16 08:36; Start 12/19/16 at 08:30 Famotidine/Sodium Chloride 20 mg/ Premix 50 ml @ 100 mls/hr Q12 IV Last administered on 12/18/16 20:34; Start 12/18/16 at 20:30; Stop 12/19/16 at 08:07 ; Status DC Sodium Chloride 100 ml @ ud STK-MED ONCE .ROUTE Last administered on 12/18/16 20:35; Start 12/18/16 at 20:14; Stop 12/18/16 at 20:17; Status DC Piperacillin Sod/ Tazobactam Sod 3.375 gm/Dextrose/ Water 50 ml @ 12.5 mls/hr Q8 IV Last administered on 12/19/16 06:32; Start 12/19/16 at 06:30; Stop 12/19 at 17:11; Status DC Piperacillin Sod/ Tazobactam Sod 3.375 gm/Dextrose/ Water 50 ml @ 100 mls/hr ONCE ONCE IV Last administered on 12/18/16 22:34; Start 12/18/16 at 21:15; Stop 12/18/16 at 21:44; Status DC Sodium Chloride 100 ml @ ud STK-MED ONCE .ROUTE Last administered on 12/19/16 06:33; Start 12/19/16 at 06:24; Stop 12/19/16 at 06:27; Status DC Famotidine/Sodium Chloride/Premix (Pepcid Inj/IV Premix) 50 ml @ 100 mls/hr BID IV Last administered on 12/19/16 11:03; Start 12/19/16 at 10:30 Labs Test 12/18/16 03:25 12/18/16 04:50 12/19/16 05:30 Prothrombin Time 9.9sec (8.1-12.5) Prothromb Time International Ratio 0.93ratio Magnesium Level 2.3mg/dL (1.6-2.6) Lipase 30U/L (13-60) Hold Bassett Top Tube Received (Received) Hepatitis A IgM Antibody Negative (Negative) Hepatitis B Surface Antigen Negative (Negative) Hepatitis B Core IgM Antibody Negative (Negative) Hepatitis C Antibody <0.1s/co ratio (0.0-0.9) Hepatitis C Comment Comment (.) Urine Color Dark yellow (YELLOW) Urine Appearance Hazy (CLEAR,HAZY) Urine pH 7.5 (5.0-8.0) Urine Specific [place] 1.015 (1.003-1.035) Urine Protein Negativemg/dL (NEG,TRACE) Urine Glucose (UA) Negativemg/dL (NEGATIVE) Urine Ketones Negativemg/dL (NEGATIVE) Urine Occult Blood Trace (NEGATIVE) Urine Nitrite Negative (NEGATIVE) Urine Bilirubin Negative (NEGATIVE) Urine Urobilinogen 1.0mg/dL (NORMAL) Urine Leukocyte Esterase Negative (NEGATIVE) Urine RBC 0-2/hpf (0-2) Urine WBC 0-5/hpf (0-5) Urine Epithelial Cells Moderate/hpf (NONE-MOD) Urine Crystals None seen (NONE SEEN) Urine Bacteria Few/hpf (NONE-FEW) Urine Hyaline Casts None/lpf (NONE) Urine Granular Casts None seen (NONE SEEN) Urine Waxy Casts None seen (NONE SEEN) Urine Red Blood Cell Casts None seen (NONE SEEN) Urine White Blood Cell Casts None seen (NONE SEEN) Urine Mucus Present (None Seen) Urine Trichomonas None seen (NONE SEEN) Urine Yeast None (NONE SEEN) Urinalysis Comment None Urine Culture Reflexed Not indicated Hold Urine Received (Received) White Blood Count 6.1th/mm3 (3.8-10.1) Red Blood Count 4.56mil/mm3 (3.90-5.20) Hemoglobin 12.7g/dL (12.0-15.6) Hematocrit 37.8% (35.0-46.0) Mean Corpuscular Volume 82.9fL (81-100) Mean Corpuscular Hemoglobin 27.9pg (27.0-35.0) Mean Corpuscular Hemoglobin Concent 33.6% (32.0-37.0) Red Cell Distribution Width 14.0% (12.3-15.4) Platelet Count 260bil/L (150-400) Neutrophils (%) (Auto) 52.6% (40-74) Lymphocytes (%) (Auto) 31.7% (14-46) Monocytes (%) (Auto) 9.9% (4-12) Eosinophils (%) (Auto) 4.5% (0-5) Basophils (%) (Auto) 1.0% (0-3) Sodium Level 139mEq/L (134-144) Potassium Level 4.5mEq/L (3.5-5.2) Chloride Level 106mEq/L (97-108) Carbon Dioxide Level 20mmol/L (18-29) Blood Urea Nitrogen 6mg/dL (6-24) Creatinine 0.63mg/dL (0.57-1.00) Estimat Glomerular Filtration Rate 149mL/min (>59) Glucose Level 133mg/dL (60-99) Calcium Level 9.1mg/dL (8.5-10.1) Total Bilirubin 2.7mg/dL (0.0-1.2) Aspartate Amino Transf (AST/SGOT) 264U/L (0-50) Alanine Aminotransferase (ALT/SGPT) 352U/L (0-32) Alkaline Phosphatase 155U/L (25-150) Total Protein 6.6g/dL (6.4-8.4) Albumin 3.4g/dL (3.4-5.0) Plan Impression Patient chart reviewed, patient interviewed and anesthestic plan with risks, benefits, and alternatives discussed, and informed consent obtained. NPO per Anesth. Guidelines: Yes ASA Physical Status: ASA2 Plus Emergency Anesthetic Plan: GA Bene/Risks/Altern/Consents: Yes HP Complete Prior to Induction: Yes Marcel Paris MD December 19, 2016 17:42
--- NOTE | 2016-12-19 19:26 | NUR ---
At Endo Patient still at endo. report given to on coming nurse.
--- NOTE | 2016-12-19 20:00 | NUR ---
Report received from ENDO from [facility].
[2016-12-19] MEDS ORDERED: Lactated Ringer's 500 ML IV ONE (20:25)
[2016-12-19] MEDS ORDERED: MetoCLOpramide 5 mg/mL 2 mL Inj ONE (20:28)
--- NOTE | 2016-12-19 20:55 | NUR ---
ENDO Pt arrived in [facility] from endoscopy at 2049. Pt very drowsy, awoken with repeated stimuli. Pt scooted from [facility] to bed by herself easily. LR running freely. Endo RN reported stress incontinence and needed to change gown and linens. Pt reported no pain. VSS. When in bed, pt started retching with very little emesis. Retching soon ended and pt went back to sleep. Family in room. Hourly rounding.
[2016-12-20] MEDS: D5 0.45% NaCl + KCl 20 mEq/L 1,000 ML IV SCH (01:03)
[2016-12-20 02:16] VITALS: BP 93/59; PULSE 74; RESP 16; O2SAT 93
--- NOTE | 2016-12-20 03:04 | NUR ---
ZOSYN Per [facility], zosyn compatible with potassium chloride, NS, and D5W, but not tested with D5 1/2NS 20K. Verified with pharmacy that it is okay to run zosyn at the same time as D5 1/2NS 20K.
[2016-12-20] MEDS: Piperacillin-Tazo 3.375 Gm Inj 3.375 GM in Dextrose 5% Minibag Plus 50 ML IV SCH ×2 (03:14→10:23)
[2016-12-20 05:56] VITALS: BP 111/69; PULSE 68; RESP 16; O2SAT 97
[2016-12-20 06:52] LABS: BASOPHILS % (AUTO) 0.2 % (0-3); EOSINOPHILS % (AUTO) 0.1 % (0-5); MONOCYTES % (AUTO) 6.9 % (4-12); Mean Corpuscular Hemoglobin 27.8 pg (27.0-35.0); Mean Corpuscular Volume 82.6 fL (81-100); NEUTROPHILS % (AUTO) 77.5 % (40-74); Platelet Count 301 bil/L (150-400)
[2016-12-20 07:34] VITALS: BP 121/79; PULSE 83; RESP 16; O2SAT 95
[2016-12-20] MEDS: Famotidine Inj 20 MG in IV Premix 1 EACH IV SCH (07:37)
[2016-12-20 07:48] LABS: Bilirubin, Direct 0.7 mg/dL (0.0-0.3); Magnesium 1.9 mg/dL (1.6-2.6); Phosphorus 4.1 mg/dL (2.5-4.9)
--- NOTE | 2016-12-20 09:21 | DRSVH ---
PROCEDURE: X-RAY E.R.C.P. - BILIARY AND PANCREATIC ([id number]) INDICATIONS: C-ARM ASSISTED STONE REMOVAL TECHNIQUE: Fluoroscopic spot films were acquired by the gastroenterology service during ERCP procedu re. COMPARISON: [facility], MR, MR ABD MRCP, 12/18/2016, 19:11. FINDINGS: 3 spot fluoroscopic images, demonstrating less than expected contrast opacification of intr ahepatic duct, probably left hepatic duct. Elsewhere, no definite filling defect IMPRESSION: Less than expected contrast opacification of the left hepatic duct, potentially incomplete filling or stenosis. Recommend correlation to real-time observations. Dictated by: Mich Grove M.D. on 12/20/2016 at 9:15 Approved by: Mich Grove M.D. on 12/20/2016 at 9:19
--- NOTE | 2016-12-20 10:06 | PCM.PNSURG ---
Subjective Date of Service: December 20, 2016 Date of Service: December 20, 2016 Visit Information: Reason for Visit Biliary Colic And Evevated Lfts Surgery/Surgery Date Post-Op Day # Date of Admission: December 18, 2016 at 09:12 Hospital Day # Subjective: States that her pain has resolved completely. She is able to ambulate without difficulties. Reports no GI disturbances. Denies N/V. denies fever/chills. WBC 9.6. Remains on IV ABX and pain medication. ERCP showed less than expected contrast opacification of the left hepatic duct, potentially incomplete filling or stenosis. AST and ALT continue to trend down. Alk Phos elevated slightly yesterday, today has slightly trended down. Total Bili continue to trend down. Direct bili also elevated. Objective Vital Sign- Last 8 Hours Date Time Temp Pulse Resp B/P Pulse Ox O2 Delivery O2 Flow Rate FiO2 12/20/16 07:34 36.8 83 16 121/79 95 Room Air 12/20/16 05:56 36.9 68 16 111/69 97 Room Air 12/20/16 02:16 36.8 74 16 93/59 93 Room Air Intake and Output- Last 8 Hour 12/20/16 Cumulative From/Thru 07:00 12/18/16 02:41 - 12/20/16 06:32 Intake Total 976 ml 4402 ml Output Total 650 ml 650 ml Balance 326 ml 3752 ml Intake Oral 200 ml 200 ml IV Total 776 ml 4202 ml Output Urine Total 650 ml 650 ml General: Alert, Oriented X3, Cooperative Lungs: Clear to Auscultation, Normal Air Movement Heart: Exam Unremarkable, Regular Rate/Rhythm Abdomen: Soft, Non-tender Result Diagram: 12/20/1660412/20/16604 Diagnostics: . US ABDOMEN, LIMITED IMPRESSION: Normal limited right upper quadrant evaluation. Dictated by: Noah Saeed M.D. on 12/18/2016 at 9:12 CT ABDOMEN AND PELVIS WITH CONTRAST IMPRESSION: 1. Possible 1 mm stone in the distal common bile duct level of the ampulla. Recommend MRCP and gastroenterology consult. 2. Cholelithiasis. 3. No free fluid or air. 4. No dilated loops of bowel. 5. Findings telephoned to Dr. Jayson Pittman on 12/18/2016 at 0821 hours. Dictated by: Tania Perez MD, PhD on 12/18/2016 at 7:59 MR ABDOMEN MRCP IMPRESSION: 1. There is a 4 mm area of decreased signal in the proximal common bile duct as described above which may represent choledocholithiasis. Consider ERCP for confirmation. There is no filling defect in the distal common bile duct correspond to the questioned CT finding earlier today. There is no intra-or extrahepatic bile duct dilatation. 2. Linear filling defects in the gallbladder may represent unusual gallbladder sludge or gallbladder wall thickening and edema. Acute cholecystitis is possible although CT and ultrasound earlier today were normal. A HIDA scan could evaluate this finding if clinical exam of the gallbladder is indeterminate. Dictated by: Isac Toro M.D. on 12/18/2016 at 19:37 X-RAY E.R.C.P. - BILIARY AND PANCREATIC IMPRESSION: Less than expected contrast opacification of the left hepatic duct, potentially incomplete filling or stenosis. Recommend correlation to real-time observations. Dictated by: Mich Grove M.D. on 12/20/2016 at 9:15 Assessment & Plan Impression Assessment and Plan: 1. Cholelithiasis - US showed normal gallbladder wasll, no stones no biliary distension suspected - CT showed possible 1mm stone in common bile duct and cholelithiasis - MRCP showed possible choledocholithiasis, no filling defect found common bile duct - ERCP showed Less than expected contrast opacification of the left hepatic duct , potentially incomplete filling or stenosis - Transaminitis, bilirubin, alk phos all continue to trends down. WBC normalized - Pt asymptomatic at this point, remains afebrile - Continue IV ABX - Possible laparoscopic cholecystectomy today - NPO Problems: Attending Statement: I agree with Dr. Whelan's assessment and plan. Possible lap giorgio today with Dr. Segovia. PERLA WHELAN DO December 20, 2016 09:30 Zeyad Wild MD December 22, 2016 16:06
--- NOTE | 2016-12-20 10:23 | NUR ---
Social Work Note: Screen Note Data& Assessment: EMR reviewed. Bianca Church is a 41 year old female admitted on 12/18/16 for Biliary Colic. Pt has [employer] for insurance coverage and sees Danish Noble MD for primary care. Pt lives in with family and is independent at baseline. SW met with patient at bedside and explained SW role. Patient does not have Advance Directive/DPOA and declined the information. No discharge needs identified at this time. SW to continue to follow if any needs arise. Plan: Anticipated discharge home via POV when medically ready. No discharge needs identified at this time. SW to continue to follow if any needs arise. Sylvia Moya, BARBARA, ACM
--- NOTE | 2016-12-20 10:25 | PCM.PNMED ---
Subjective Date of Service December 20, 2016 Subjective GI progress note Overnight the patient did well. Has not eaten as there is planned for cholecystectomy today. Denies abdominal pain or any review of systems Exam Vital Signs Vital Sign - Last Date Time Temp Pulse Resp B/P Pulse Ox O2 Delivery O2 Flow Rate FiO2 12/20/16 07:34 36.8 83 16 121/79 95 Room Air Intake and Output 12/19/16 12/19/16 12/20/16 Cumulative From/Thru 15:00 23:00 07:00 12/18/16 02:41 - 12/20/16 06:32 Intake Total 841 ml 881 ml 976 ml 4402 ml Output Total 650 ml 650 ml Balance 841 ml 881 ml 326 ml 3752 ml Intake Oral 200 ml 200 ml IV Total 841 ml 881 ml 776 ml 4202 ml Output Urine Total 650 ml 650 ml Exam General: Awake and alert Respiratory: CTA bilaterally Cardio: Regular rate and rhythm Abdomen: Abdomen soft, nondistended, non-tender, positive bowel sounds Extremities: No edema IVs and Medications Medications Reviewed: Medications were reviewed in detail Lab and Diagnostics Result Diagram: 12/20/1660412/20/16604 Assessment & Plan 41-year-old female who presented with epigastric pain, nausea/vomiting second to choledocholithiasis and acute cholecystitis. Patient's LFTs are trending down. Patient underwent ERCP yesterday with reported removal of a small gallstone. Additional information please see Dr. Ibarra's procedure note. Patient is scheduled to go for cholecystectomy later today. Continue to trend LFTs Thank you for allowing us to participate in the care of this patient Attending Statement pt seen and examined agree with resident physician note LFT's improved cholecystectomy as per surgery team follow up in GI clinic as needed Marcel Le DO December 20, 2016 10:25 Alexandra Ibarra MD December 22, 2016 10:18
[2016-12-20 11:43] VITALS: BP 122/77; PULSE 63; RESP 16; O2SAT 98
--- NOTE | 2016-12-20 12:05 | PCM.PNMED ---
Subjective Date of Service December 20, 2016 Subjective tentatively scheduled for cholecystectomy later today kept in NPO pt denied nausea, vomiting, but has mild RLQ pain remained afebrile, Exam Vital Signs Vital Sign - Last Date Time Temp Pulse Resp B/P Pulse Ox O2 Delivery O2 Flow Rate FiO2 12/20/16 11:43 36.9 63 16 122/77 98 Room Air Intake and Output 12/19/16 12/19/16 12/20/16 Cumulative From/Thru 15:00 23:00 07:00 12/18/16 02:41 - 12/20/16 06:32 Intake Total 841 ml 881 ml 976 ml 4402 ml Output Total 650 ml 650 ml Balance 841 ml 881 ml 326 ml 3752 ml Intake Oral 200 ml 200 ml IV Total 841 ml 881 ml 776 ml 4202 ml Output Urine Total 650 ml 650 ml Exam NAD, comfortably laying down on the bed no JVD, MMM, no LAD RRR, nl s1, s2 no mrg CTAB, no w,c S,ND,NT,normoactive BS+ warm, no edema, pulses 2/2 IVs and Medications Medications Reviewed: Medications were reviewed in detail Lab and Diagnostics Result Diagram: 12/20/1660412/20/16604 Assessment & Plan 41-year-old female with no past medical history resided with sudden onset of epigastric pain, nausea, started last night after dinner. Acute, active Acute onset epigastric pain, nausea, vomiting, likely due to cholelithiasis, POA , initially abd US negative for acute cholecystitis, CT suggested remaining CBD stone distally near ampula, labs showed mild transaminitis. non-obstructive with normal bilirubin. follow up MRCP showed new filiing defect 4 mm area of decreased signal in the proximal common bile duct. possible acute cholecystitis. s/p ERCP 12/19 reported removal of a small gallstone. -pt clinically stable, however, labs showed obstructive, viral hap panel negative. LFts trending down. -plan for cholecystectomy later today -started zosyn 12/18, continue for now -trends LFTs, bilirubin -continue D5 1/2NS 100cc -pain control will try fentanyl given codeine allergy, dispo:likely 1-2more days, pending diet: Nothing by mouth for now dvt ppx: LMWH Full code Time spent 35min Lawanda Shah MD December 20, 2016 12:05
--- NOTE | 2016-12-20 13:58 | ENDO ---
[address] [address] ENDOSCOPY PROCEDURE PATIENT: KAROLINE MORALES : 1975 MR#: [id number] ADMIT: 12/18/2016 JOB ID: [id number] DATE OF SERVICE: 12/20/2016 PROCEDURE: 1. Endoscopic ultrasound. 2. Endoscopic retrograde cholangiopancreatography. INDICATIONS: Abnormal LFTs with abdominal pain and imaging findings suggestive of choledocholithiasis. INSTRUMENTS USED: 1. GF-UE-160AL radial echo endoscope 2. TJF-Q180V side-viewing duodenoscope. ANESTHESIA: Please see anesthesia report for details regarding ASA classification, Mallampati score, and general anesthesia. PROCEDURE DETAILS: After informed consent was obtained, the patient was brought to the GI suite, where she was placed under general anesthesia and placed in a left lateral decubitus position. After a bite block was placed, the radial echoendoscope was then introduced into the bite block and advanced without difficulty to the second portion of the duodenum. Linear echo endoscopic findings demonstrated the followin. A 6-7 mm common bile duct with what appeared to be a 3mm hyperechoic structure in the proximal portion with shadowing suggestive of a common bile duct stone. 2. The examined portions of the pancreas appeared unremarkable. The radial echoendoscope was then withdrawn. The patient was then placed in the standard ERCP position, and the side-viewing duodenoscope was inserted through the bite block and advanced without difficulty to the second portion of the duodenum. The ampulla was identified, and there was bile seen flowing. 3. The ampulla looked unremarkable. Using an Olympus CleverCut tome, selective biliary cannulation was achieved with wire guidance. Initial cholangiogram demonstrated a 6-7 mm CBD. No filling defects were appreciated. 4. The intrahepatics filled. 5. There was filling of the cystic duct and gallbladder. 6. A small sphincterotomy was performed. Then, we advanced an 8 mm inject from below balloon, and initial balloon sweep extruded what appeared to be a 3 mm cholesterol stone. Two more sweeps were performed which revealed no further stones or sludge. Final cholangiogram demonstrated pneumobilia and rapid drainage of contrast. 7. The pancreatic duct was not cannulated or injected with contrast. IMPRESSION: Endoscopic retrograde cholangiopancreatography, status post sphincterotomy with balloon sweep with extrusion with extraction of small cholesterol-type stone. RECOMMENDATIONS: 1. Follow LFTs. 2. Consult General Surgery for elective cholecystectomy. COMPLICATIONS: None. ESTIMATED BLOOD LOSS: Less than 5 mL. MTDD
--- NOTE | 2016-12-20 15:52 | NUR ---
Discharge Patient is alert and oriented X3. able to make needs known. new orders for discharge. Verified orders with Dr Vee and states patient will call the clinic to schedule the appointment and patient is aware. Reviewed discharge paper work and patient signed discharge paper work. IV discontinued with out difficulty left arm. Ariadna RN from surgery reviewed surgery date and time, instructions. no new prescriptions per Dr. vee. Denies pain or discomfort before discharge. Patient lleft unit by walking per preference with family approx [phone].
--- NOTE | 2016-12-20 22:06 | PCM.DIMED ---
Discharge Instructions Date of Service December 20, 2016 Dates of Hospitalization December 18, 2016 at 09:12 Discharge Diagnosis Discharge Diagnosis transaminitis, biliary colic in the setting of cholelithiasis, choledocholithiasis s/p ERCP with sphincterotomy with balloon sweep with extrusion with extraction of small cholesterol-type stone. Diet Low fat, Low Sodium, Other Activity No restrictions Patient Instructions You were hospitalized with abdominal pain, likely due to stones in her gallbladder and bile duct. You were supportively treated and you underwent procedure to remove stones in her bile duct. Please note that you need elective surgery, You will be called from the general surgery regarding follow up appointment. Follow-up Provider: Zeyad Wild MD Follow-up with PCP in: 1 week Lawanda Shah MD December 20, 2016 14:24
--- NOTE | 2016-12-21 14:26 | PCM.DC.MED ---
Discharge Summary Date of Service December 20, 2016 Dates of Hospitalization Date of Hospital Admission December 18, 2016 at 09:12 Date of Discharge: December 20, 2016 Providers: Admitting Physician: Lawanda Shah MD Primary Care Physician: Danish Noble ND Attending Physician: Lawanda Shah MD Diagnosis at Time of Discharge Diagnosis at Time of Discharge Acute transaminitis, biliary colic in the setting of cholelithiasis, choledocholithiasis s/p ERCP with sphincterotomy with balloon sweep with extrusion with extraction of small cholesterol-type stone. Consultations GI Gen surg Procedures XRay, CTs & MRIs PROCEDURE: X-RAY E.R.C.P. - BILIARY AND PANCREATIC ([id number]) INDICATIONS: C-ARM ASSISTED STONE REMOVAL TECHNIQUE: Fluoroscopic spot films were acquired by the gastroenterology service during ERCP procedure. COMPARISON: [facility], MR, MR ABD MRCP, 12/18/2016, 19:11. FINDINGS: 3 spot fluoroscopic images, demonstrating less than expected contrast opacification of intrahepatic duct, probably left hepatic duct. Elsewhere, no definite filling defect IMPRESSION: Less than expected contrast opacification of the left hepatic duct, potentially incomplete filling or stenosis. Recommend correlation to real-time observations. Dictated by: Mich Grove M.D. on 12/20/2016 at 9:15 Approved by: Mich Grove M.D. on 12/20/2016 at 9:19 PROCEDURE: MR ABDOMEN MRCP INDICATIONS: cbd stone TECHNIQUE: Coronal HASTE through the abdomen, axial 2-D FLASH in- and [id number], and breath-hold T2 FSE with fat saturation through the biliary system and pancreas. Oblique coronal and axial thin-slice HASTE, radial thick-slab HASTE centered on the extrahepatic bile ducts. Intravenous secretin: Not requested. COMPARISON: CT and ultrasound from December 18, 2016. FINDINGS: Image quality: Adequate. Pancreas and biliary system: Intra- and extra-hepatic biliary ducts are non dilated. There is a filling defect in the proximal common bile duct ( se 14 im 60) measuring 4 mm. There is no filling defect in the distal common bile duct to correspond with the questioned CT finding from earlier today. Pancreas is normal in morphology, without adjacent soft tissue edema. Pancreatic duct is not definitely identified. There are linear filling defects in the gallbladder ( for example se 5 im 12. Other solid organs: Liver and spleen are normal in size. Tiny benign simple hepatic cyst. No adrenal nodules. Both kidneys are normal in size, without hydronephrosis. Nodes and vessels: No retroperitoneal or mesenteric adenopathy by size criteria. Aorta and inferior vena cava are normal in size. IMPRESSION: 1. There is a 4 mm area of decreased signal in the proximal common bile duct as described above which may represent choledocholithiasis. Consider ERCP for confirmation. There is no filling defect in the distal common bile duct correspond to the questioned CT finding earlier today. There is no intra-or extrahepatic bile duct dilatation. 2. Linear filling defects in the gallbladder may represent unusual gallbladder sludge or gallbladder wall thickening and edema. Acute cholecystitis is possible although CT and ultrasound earlier today were normal. A HIDA scan could evaluate this finding if clinical exam of the gallbladder is indeterminate. Dictated by: Isac Toro M.D. on 12/18/2016 at 19:37 Approved by: Isac Toro M.D. on 12/18/2016 at 19:48 PROCEDURE: CT ABDOMEN AND PELVIS WITH CONTRAST ([id number]) INDICATIONS: abd pain, elev WBC and LFT, normal US TECHNIQUE: After the administration of oral and intravenous contrast, 5 mm thick sections acquired from the diaphragms to the symphysis. 5 mm thick coronal and sagittal reformats were performed. For radiation dose reduction, the following was used : automated exposure control, adjustment of mA and/or kV according to patient size. COMPARISON: None. FINDINGS: Image quality: Excellent. ABDOMEN: Lung bases: Lung bases are clear. Heart size is normal. Solid organs: Liver and spleen are normal in size and enhancement. Gallbladder contains small gallstones. Biliary system is non-dilated. There is a small density at the expected level of the ampulla the common bile duct may represent choledocholithiasis Pancreas enhances normally. No adrenal nodules. Kidneys are normal in size and enhancement, without hydronephrosis. Peritoneum and bowel: Stomach, small bowel, and colon loops are normal in caliber and wall thickness. No free fluid or air. The appendix is normal. Nodes and vessels: No retroperitoneal or mesenteric adenopathy. Aorta and inferior vena cava are normal in caliber. Miscellaneous: No ventral hernias. PELVIS: Genitourinary: Bladder wall thickness is normal. Miscellaneous: No inguinal hernias or adenopathy. Bones: No suspicious bony lesions. No vertebral body compression fractures. IMPRESSION: 1. Possible 1 mm stone in the distal common bile duct level of the ampulla. Recommend MRCP and gastroenterology consult. 2. Cholelithiasis. 3. No free fluid or air. 4. No dilated loops of bowel. 5. Findings telephoned to Dr. Jayson Pittman on 12/18/2016 at 0821 hours. Dictated by: Tania Perez MD, PhD on 12/18/2016 at 7:59 Approved by: Tania Perez MD, PhD on 12/18/2016 at 8:22 PROCEDURE: US ABDOMEN, LIMITED ([id number]) INDICATIONS: cholecystitis TECHNIQUE: Real-time focused scanning was performed of the abdomen, with image documentation. COMPARISON: None. FINDINGS: Gallbladder wall is normal, and no gallstones seen, no biliary distention suspected. IMPRESSION: Normal limited right upper quadrant evaluation. Dictated by: Noah Saeed M.D. on 12/18/2016 at 9:12 Approved by: Noah Saeed M.D. on 12/18/2016 at 9:12 Invasive Procedures ENDOSCOPY PROCEDURE PATIENT: KAROLINE MORALES : 1975 MR#: [id number] ADMIT: 12/18/2016 JOB ID: [id number] DATE OF SERVICE: 12/20/2016 PROCEDURE: 1. Endoscopic ultrasound. 2. Endoscopic retrograde cholangiopancreatography. INDICATIONS: Abnormal LFTs with abdominal pain and imaging findings suggestive of choledocholithiasis. INSTRUMENTS USED: 1. GF-UE-160AL radial echo endoscope 2. TJF-Q180V side-viewing duodenoscope. ANESTHESIA: Please see anesthesia report for details regarding ASA classification, Mallampati score, and general anesthesia. PROCEDURE DETAILS: After informed consent was obtained, the patient was brought to the GI suite, where she was placed under general anesthesia and placed in a left lateral decubitus position. After a bite block was placed, the radial echoendoscope was then introduced into the bite block and advanced without difficulty to the second portion of the duodenum. Linear echo endoscopic findings demonstrated the followin. A 6-7 mm common bile duct with what appeared to be a hyperechoic object in the proximal portion with shadowing suggestive of a common bile duct stone. EUS exam was limited. 2. The examined portions of the pancreas appeared unremarkable. The radial echoendoscope was then withdrawn. The patient was then placed in the standard ERCP position, and the side-viewing duodenoscope was inserted through the bite block and advanced without difficulty to the second portion of the duodenum. The ampulla was identified, and there was bile seen flowing. 3. The ampulla otherwise looked unremarkable. Using an Olympus CleverCut tome, selective biliary cannulation was achieved with wire guidance. Initial cholangiogram demonstrated a 6-7 mm CBD. No filling defects were appreciated. 4. The intrahepatics filled. 5. There was filling of the cystic duct and gallbladder. 6. A small sphincterotomy was performed. Then, we advanced an 8 mm injectable balloon, and initial balloon sweep extruded what appeared to be a 3 mm cholesterol stone. Two more sweeps were performed which revealed no further stones or sludge. Final cholangiogram demonstrated pneumobilia and rapid drainage of contrast. 7. The pancreatic duct was not cannulated or injected with contrast. IMPRESSION: Endoscopic retrograde cholangiopancreatography, status post sphincterotomy with balloon sweep with extrusion with extraction of small cholesterol-type stone. RECOMMENDATIONS: 1. Follow LFTs. 2. Consult General Surgery for elective cholecystectomy. COMPLICATIONS: None. ESTIMATED BLOOD LOSS: Less than 5 mL. Alexandra Ibarra MD 12/20/16 0053 Brief History HPI obtained on 12/18 41-year-old female with no past medical history resided with sudden onset of epigastric pain, nausea, started last night after dinner. Patient was in usual state of health until last night, she had heavy cheeseburger, started feeling heaviness on the epigastric area, pain was progressively worsened throughout the night, felt nauseous, vomiting and dry heaves. Pain was persistent, did not radiated to back, 8-9 out of 10, achy feeling. Patient had similar episode about a month ago, but spontaneously resolved. Patient is not drinking alcohol Emergency department, VS are stable [id number], HR84, afebrile, RR15, 99%on RA, pt only received IVF. US showed normal hepatobiliary tract. CT abd showed 1mm stone in possible distal CBD, cholelithiasis. GI was consulted On the floor, pt looked comfortable, denied n/v, epigastric pain. ROS: no fever chills, chest pain, cough, sputum, constipation, diarrhea, recent sick contact or travel Hospital Course 41-year-old female with no past medical history resided with sudden onset of epigastric pain, nausea, started last night after dinner. Acute dx Acute onset epigastric pain, nausea, vomiting, likely due to cholelithiasis and choledocholithiasis, Initially abd US negative for acute cholecystitis, CT suggested remaining CBD stone distally near ampula, labs showed mild transaminitis. initially non-obstructive with normal bilirubin. However follow up MRCP showed new area of filiing defect 4 mm area of decreased signal in the proximal common bile duct. possible acute cholecystitis. pt underwent ERCP with sphincterotomy 12/19 by , removed small CBD stone, bilirubin and LFTs trended down. Surgery was planned electively as OP as pt was asymptomatic per Surgery consult , . patient tolerated diet, remained asymptomatic upon d/c. Exam Vital Signs (Last) Date Time Temp Pulse Resp B/P Pulse Ox O2 Delivery O2 Flow Rate FiO2 12/20/16 11:43 36.9 63 16 122/77 98 Room Air Exam NAD, comfortably laying down on the bed no JVD, MMM, no LAD RRR, nl s1, s2 no mrg CTAB, no w,c S,ND,NT,normoactive BS+ warm, no edema, pulses 2/2 Test 12/18/16 03:25 12/18/16 04:50 12/20/16 06:05 Prothrombin Time 9.9sec (8.1-12.5) Prothromb Time International Ratio 0.93ratio Lipase 30U/L (13-60) Hold Bassett Top Tube Received (Received) Hepatitis A IgM Antibody Negative (Negative) Hepatitis B Surface Antigen Negative (Negative) Hepatitis B Core IgM Antibody Negative (Negative) Hepatitis C Antibody <0.1s/co ratio (0.0-0.9) Hepatitis C Comment Comment (.) Urine Color Dark yellow (YELLOW) Urine Appearance Hazy (CLEAR,HAZY) Urine pH 7.5 (5.0-8.0) Urine Specific [place] 1.015 (1.003-1.035) Urine Protein Negativemg/dL (NEG,TRACE) Urine Glucose (UA) Negativemg/dL (NEGATIVE) Urine Ketones Negativemg/dL (NEGATIVE) Urine Occult Blood Trace (NEGATIVE) Urine Nitrite Negative (NEGATIVE) Urine Bilirubin Negative (NEGATIVE) Urine Urobilinogen 1.0mg/dL (NORMAL) Urine Leukocyte Esterase Negative (NEGATIVE) Urine RBC 0-2/hpf (0-2) Urine WBC 0-5/hpf (0-5) Urine Epithelial Cells Moderate/hpf (NONE-MOD) Urine Crystals None seen (NONE SEEN) Urine Bacteria Few/hpf (NONE-FEW) Urine Hyaline Casts None/lpf (NONE) Urine Granular Casts None seen (NONE SEEN) Urine Waxy Casts None seen (NONE SEEN) Urine Red Blood Cell Casts None seen (NONE SEEN) Urine White Blood Cell Casts None seen (NONE SEEN) Urine Mucus Present (None Seen) Urine Trichomonas None seen (NONE SEEN) Urine Yeast None (NONE SEEN) Urinalysis Comment None Urine Culture Reflexed Not indicated Hold Urine Received (Received) White Blood Count 9.6th/mm3 (3.8-10.1) Red Blood Count 4.49mil/mm3 (3.90-5.20) Hemoglobin 12.5g/dL (12.0-15.6) Hematocrit 37.1% (35.0-46.0) Mean Corpuscular Volume 82.6fL (81-100) Mean Corpuscular Hemoglobin 27.8pg (27.0-35.0) Mean Corpuscular Hemoglobin Concent 33.7% (32.0-37.0) Red Cell Distribution Width 13.6% (12.3-15.4) Platelet Count 301bil/L (150-400) Neutrophils (%) (Auto) 77.5% (40-74) Lymphocytes (%) (Auto) 15.0% (14-46) Monocytes (%) (Auto) 6.9% (4-12) Eosinophils (%) (Auto) 0.1% (0-5) Basophils (%) (Auto) 0.2% (0-3) Sodium Level 138mEq/L (134-144) Potassium Level 4.4mEq/L (3.5-5.2) Chloride Level 103mEq/L (97-108) Carbon Dioxide Level 22mmol/L (18-29) Blood Urea Nitrogen 8mg/dL (6-24) Creatinine 0.76mg/dL (0.57-1.00) Estimat Glomerular Filtration Rate 120mL/min (>59) Glucose Level 172mg/dL (60-99) Calcium Level 9.4mg/dL (8.5-10.1) Phosphorus Level 4.1mg/dL (2.5-4.9) Magnesium Level 1.9mg/dL (1.6-2.6) Total Bilirubin 1.6mg/dL (0.0-1.2) Direct Bilirubin 0.7mg/dL (0.0-0.3) Aspartate Amino Transf (AST/SGOT) 79U/L (0-50) Alanine Aminotransferase (ALT/SGPT) 226U/L (0-32) Alkaline Phosphatase 152U/L (25-150) Total Protein 6.6g/dL (6.4-8.4) Albumin 3.6g/dL (3.4-5.0) Discharge Medications No Active Prescriptions or Reported Meds Followup Plan Disposition: home Discharge Diet: Low fat, Low Sodium, Other Discharge Activity: No restrictions Patient Instructions You were hospitalized with abdominal pain, likely due to stones in her gallbladder and bile duct. You were supportively treated and you underwent procedure to remove stones in her bile duct. Please note that you need elective surgery, You will be called from the general surgery regarding follow up appointment. Follow-up Provider: Zeyad Wild MD Follow-up with PCP in: 1 week Time spent 65min Lawanda Shah MD December 20, 2016 22:07
== END 2016-12-20 15:46 | disposition home or self-care (01) | DRG 446 ==
LOC: SED 02:29 → MOC 09:12 → OBSVTOIN 09:12 → INTOOBSV 09:12
PROVIDERS: ADMIT Internal Medicine; ATTEND Internal Medicine
PROC: 0FC98ZZ Extirpation of Matter from Common Bile Duct, Via Natural or Artificial Opening Endoscopic (ICD-10-PCS; principal; 2016-12-20)
PROC: BF10YZZ Fluoroscopy of Bile Ducts using Other Contrast (ICD-10-PCS; 2016-12-20)
DX: K80.51 Calculus of bile duct without cholangitis or cholecystitis with obstruction (principal); F17.210 Nicotine dependence, cigarettes, uncomplicated; R10.13 Epigastric pain; R74.0 Nonspecific elevation of levels of transaminase and lactic acid dehydrogenase [LDH]

== ENCOUNTER 2016-12-27 05:33 | Day surgery (SDC) | payer OTHER ==
[2016-12-27] VITALS (7 sets, daily range): BP systolic 119–140; BP diastolic 74–85; PULSE 72–95; RESP 14–16; O2SAT 97–100
[~2016-12-27] VITALS: Ht 154.9 cm; Wt 64.7 kg
[2016-12-27] MEDS: Lactated Ringer's 1,000 ML IV SCH ×3 (05:03→09:15)
[2016-12-27] MEDS ORDERED: Ondansetron 2 mg/mL 2 mL Inj ONE (05:34)
[2016-12-27] MEDS ORDERED: Dexamethasone 4 mg/mL Inj ONE (05:34)
[2016-12-27] MEDS ORDERED: Neostigmine 1 mg/mL 10 mL Inj ONE (05:34)
[2016-12-27] MEDS ORDERED: Propofol 10,000 mCg/mL 20 mL Inj ONE (05:34)
[2016-12-27] MEDS ORDERED: fentaNYL-PF 50 mCg/mL 2 mL Inj ONE (05:34)
[2016-12-27] MEDS ORDERED: Succinylcholine Chloride 20 mg/mL 5 mL Inj ONE (05:34)
[2016-12-27] MEDS ORDERED: Glycopyrrolate 0.2 MG/ML 1mL Inj ONE (05:34)
[2016-12-27] MEDS ORDERED: CeFAZolin Inj 2 GM in IV Premix 1 EACH IV ONE (06:00)
[2016-12-27] MEDS ORDERED: Lactated Ringer's 500 ML IV PRN (07:53)
[2016-12-27] MEDS ORDERED: Lactated Ringer's 1,000 ML IV SCH (07:53)
--- NOTE | 2016-12-27 07:53 | PCM.HPANE ---
Patient Data Surgeon Admitting Provider: Attending Provider:Israel Caal MD Primary Care Physician:Danish Noble ND Other Provider:Kiki Schulte Anesthesia Reason for Visit Biliary Colic, Elevated Lfts Ht/WT & BMI Height (Feet): 5 Height (Inches): 1.00 Weight (Kilograms): 64.7 Body Mass Index 26.00 Allergies Coded Allergies: codeine (Verified Adverse Reaction, Severe, RACING HEART, 12/24/16) Uncoded Allergies: CHOCOLATE, FRUIT LOOPS (Allergy, Unknown, UNKNOWN, 12/24/16) Past Anesthesia History Anesthesia History: Denies:: Abnormal Airway, Anesthesia Reactions, Difficult Intubation, Fam Anesthesia Reaction, Fam Malignant Hypertherm, Malignant Hyperthermia Diabetes History Hx Diabetes?: No MRSA MRSA: No Medications Hypertension Medication: No Home Meds Incl Beta Jacqueline: No No Active Prescriptions or Reported Meds History History of ENT Problems?: No HEENT History: Denies:: Abnormal Airway Cataracts Difficult Intubation Dysphagia Glaucoma Hearing Problem Sinus Problem TMJ Denture Type: None Teeth Condition: Broken Teeth Hx of Heart Problems?: No Cardiovascular History: Denies:: AICD Abdominal Aortic Aneurism Atrial Fibrillation Cardiac Surgery Chest Pain Congestive Heart Failure Coronary Artery Disease Edema Heart Murmur Hypertension Irregular Heartbeat Pacemaker Peripheral Vascular Rheumatic Fever Thrombophlebitis Valvular Heart Disease Hx of Respiratory Problem?: No Respiratory History: Denies:: Asthma COPD Chest Surgery Cough Dyspnea Emphysema Hemoptysis Oxygen Administration Pneumonia Pulmonary Embolism Tuberculosis Use of C-PAP Machine Use of Inhalers / NEBS Hx Neurologic Problems?: Yes Neurological History: Positive for:: Headaches Denies:: Alzheimer's Disease CVA Dementia Dizziness Multiple Sclerosis Parkinson's Disease Seizures Hx of GI Problems?: Yes Other GI Pertinent History: C/OF INTERMITTANT ABD PAIN & N&V Hx of Problems?: No Genitourinary History: Denies:: HX of Hemodialysis Kidney Stones Urinary Tract Infection HX of Peritoneal Dialysis: No Female Hx: Positive for:: Endometriosis Denies:: Currently Pelvic Inflammatory Skin History: Denies:: History Skin Disorders? Pressure Ulcers Hx Musculoskeletal Problems?: No Musculoskeletal History: Denies:: Back Injury Degenerative Joint Joint Replacement Musculoskeletal Trauma Systemic Lupus Hx of Psycho/Social Problems?: No Psycho Social History: Denies:: Anxiety Bipolar Disorder Hx Depression Suicide Attempt Hx Surgeries?: Yes (C/S, BTL) Hx Any Other Health Problems?: Yes Other History: Positive for:: Hospitalization (BILIARY COLIC) Denies:: Cancer Endocrine Disease Thyroid Disease History Blood Transfusions: Denies:: Blood Transfuse Reaction Blood Transfusions Hx Diabetes: No Hx Alcohol Use: NoHx Substance Use: No Smoking Status: Current Some Day Smoker Have You Smoked inLast 12 mo: No Stop/Bang S-Snoring: Do You Snore Loudly: No T-Tired: feel tired, fatigued: No O-Obsered: Observed not breath: No P-Blood Pressure: treated: No B- Body Mass Index > 35 kg/m2: No A- Age over 50: No N- Neck Large Circumference: No G- Gender Male: No ABA Total Score: 0 ABA Risk Assessment: Low Risk, <3 Yes Risk Assessment Category Category 1A: Patient has history of documented sleep apnea, and HAS NOT received any narcotic, sedative or anesthesia administration during this stay. Category 1B: Patient has history of documented sleep apnea, and HAS received any narcotic , sedative or anesthesia administration during this stay Category 2: Patient has SUSPECTED Obstructive Sleep Apnea, and HAS received any narcotic , sedative or anesthesia administration during this stay. Category 3: Patient has SUSPECTED Obstructive Sleep Apnea and HAS NOT received narcotic, sedative or anesthesia administration during this stay. Category 4: Outpatient in Procedural Areas with known sleep apnea or who screen positive for High Risk via the STOP/BANG questionnaire. Exam Exam Vital Signs Vital Signs Date Time Temp Pulse Resp B/P Pulse Ox O2 Delivery O2 Flow Rate FiO2 12/27/16 06:00 36.1 85 16 133/85 97 Room Air General Appearance: Alert, Oriented X3, Cooperative, No Acute Distress HEENT/AIRWAY: MP 2 (chipped front teeth, overbite) Lungs: Clear to Auscultation, Normal Air Movement Heart: Exam Unremarkable, Regular Rate/Rhythm, No Murmurs/Rubs/Gallops Meds/Labs/Diagnostics Admission Meds Current Medications Lactated Ringer's (Lr) 1,000 ml @ 120 mls/hr [id number] IV Last administered on t 05:03; Start 12/27/16 at 05:00; Stop 12/27/16 at 13:19 Plan Impression Patient chart reviewed, patient interviewed and anesthestic plan with risks, benefits, and alternatives discussed, and informed consent obtained. NPO per Anesth. Guidelines: Yes ASA Physical Status: ASA1 Normal Healthy Anesthetic Plan: GA Bene/Risks/Altern/Consents: Yes HP Complete Prior to Induction: Yes Marcel Ku MD December 27, 2016 07:09
[2016-12-27] MEDS ORDERED: HYDROmorphone 1 mg/mL Inj IVPUSH PRN (07:55)
[2016-12-27] MEDS ORDERED: fentaNYL-PF 50 mCg/mL 2 mL Inj IVPUSH PRN (07:55)
[2016-12-27] MEDS ORDERED: Ondansetron 2 mg/mL 2 mL Inj IVPUSH PRN ×2 (07:55→08:35)
[2016-12-27] MEDS ORDERED: Atropine 0.4 mg/mL Inj IVPUSH PRN (07:55)
[2016-12-27] MEDS ORDERED: MetoCLOpramide 5 mg/mL 2 mL Inj IVPUSH PRN ×2 (07:55→08:35)
[2016-12-27] MEDS ORDERED: Labetalol 5 mg/mL 4 mL Inj IV PRN (07:55)
[2016-12-27] MEDS ORDERED: EPHEDrine Sulfate 50 mg/mL Inj IVPUSH PRN (07:55)
[2016-12-27] MEDS ORDERED: Phenylephrine 10,000 mCg/mL Inj IVPUSH PRN (07:55)
[2016-12-27] MEDS ORDERED: Bupivacaine-MPF 0.5% W/EPI 30 mL Inj INFILTRATE ONE (08:00)
[2016-12-27] MEDS ORDERED: HYDROcodone-APAP 5-325 mg Tablet PO PRN (08:35)
--- NOTE | 2016-12-27 08:45 | PCM.ANEP1 ---
Post Anesthesia PACU Phase 1 Assessment Vital Signs VSS, see [employer] notes Vital Signs Date Time Temp Pulse Resp B/P Pulse Ox O2 Delivery O2 Flow Rate FiO2 12/27/16 06:00 36.1 85 16 133/85 97 Room Air Anesthetic Administered: GA Level of Alertness: Awake, talking AVALOS's with Equal Strength: Yes Pain: No Nausea or Vomiting: No CV Function & Hydration Stable: Yes Airway Device: Oralpharangeal Airway Oxygen Delivery: Simple Mask Lungs: Clear to Auscultation, Normal Air Movement PACU Phase 2 Assessment Complications: No Follow up Care: N/A Patient Instructions Provided: N/A Marcel Ku MD December 27, 2016 08:45
--- NOTE | 2016-12-27 09:31 | DRSVH ---
PROCEDURE: X-RAY OPERATIVE CHOLANGIOGRAM ([id number]) INDICATIONS: BILIARY COLIC, ELEVATED LFTS COMPARISON: [facility], MR, MR ABD MRCP, 12/18/2016, 19:11. FINDINGS: Biliary ducts: The surgeon injected contrast into the biliary ducts after cannulation of the cystic duct stump. Visualized intra- and extrahepatic bile ducts are normal in caliber, without strictures. No intraluminal filling defects to suggest retained ductal stones or sludge. No evidence for iatro genic ductal injury. Duodenum: Contrast flows promptly through the sphincter of Oddi into the duodenum, which appears nor mal in caliber. IMPRESSION: Normal operative cholangiogram.. Dictated by: Kevin Cyole [facility] Interpreted: Isac Toro MD on 12/27/2016 at 9:30 Transcribed by: RE on 12/27/2016 at 9:31 Approved by: Isac Toro M.D. on 12/27/2016 at 11:09
--- NOTE | 2016-12-27 11:39 | OP ---
[address] [address] OPERATIVE REPORT PATIENT: KAROLINE MORALES : 1975 MR#: [id number] ADMIT: 12/27/2016 JOB ID: [id number] DATE OF SURGERY: 12/27/2016 PREOPERATIVE DIAGNOSIS(ES): Symptomatic gallstones. POSTOPERATIVE DIAGNOSIS(ES): Symptomatic gallstones. PROCEDURE: Laparoscopic cholecystectomy with intraoperative cholangiogram. SURGEON: Israel Caal MD. PEST LOCATOR: Leroy Whelan DO, R1. INDICATIONS: A 41-year-old woman who presented last week with choledocholithiasis. She underwent successful ERCP with ductal clearance and returns now for a laparoscopic cholecystectomy with cholangiogram. FINDINGS: Mild chronic inflammation of the gallbladder, no acute inflammation. Intraoperative cholangiogram was normal. A surgical dental assistant was required for camera operation and retraction. DESCRIPTION OF PROCEDURE: The patient was brought to the operating room. SCOAP protocol was followed. Surgical time-out was performed after prepping and draping the abdomen in a sterile fashion. She received perioperative Ancef. We obtained access with a Veress needle. Four ports were placed. The abdomen was surveyed. There was no acute inflammation. There were a few chronic adhesions that were postinflammatory in nature to the gallbladder, and these were taken down with cautery. We dissected out the triangle of Calot, identified the cystic duct as it entered the gallbladder, and placed a clip on the gallbladder side. We then continued further dissection of the gallbladder while awaiting radiology. Once Radiology was available, we made an incision in the cystic duct and inserted our cholangiocatheter. Cholangiogram demonstrated good flow into the cystic duct and then into the common bile duct, with rapid flow into the duodenum likely due to the sphincterotomy. The patient was positioned head down, and we did another injection, which showed us the proximal duct. The anatomy was normal. We removed our cholangiocatheter. We placed three clips on the patient's side of the cystic duct and then divided the cystic duct. The gallbladder was dissected free of the liver. There was a small spillage of bile, no spillage of stones. The gallbladder was removed in a bag to avoid wound contamination. We suctioned up all of our bile, irrigated out until clear and suctioned out all of our irrigation. Hemostasis was good. The clips were intact. We took our ports out, let our CO2 out and closed the 11-mm port at the fascial level with 0 Vicryl. Subcuticular Monocryl was used to close the skin. The patient tolerated the procedure well.
--- NOTE | 2017-01-01 14:13 | PATH ---
SURGICAL PATHOLOGY Attending Physician:Israel Caal MD CASE STATUS: Signed Out PATIENT NAME: KAROLINE MORALES PID: [id number] : 1975 DATE COLLECTED:12/27/2016 16:32 SPECIMEN: Gallbladder CLINICAL HISTORY: CHOLECYSTITIS 1. GALLBLADDER FINAL DIAGNOSIS: 1.GALLBLADDER: CHRONIC CHOLECYSTITIS, APPARENTLY ACALCULOUS. CHOLESTEROLOSIS. NO EVIDENCE OF MALIGNANCY. ICD10 K81.1 GROSS DESCRIPTION: Received in formalin, labeled with the patient' s name and "gallbladder", is one gallbladder measuring 6.0 x 1.5 x 1.0 cm. The serosal surface is smooth and glistening. Kalie are located at the cystic duct region. Sectioning reveals the wall to measure up to 0.5 cm in thickness. The mucosal surface is green and velvety with thick, yellow, thread-like features throughout. No stones are identified. Stem Mounter sections are submitted in one cassette. ([id number]) MICRO DESCRIPTION: See diagnosis. ICD-9 CODES: CPT CODES: 1: 35461 Electronically Signed Out Moises Maier MD [facility] [address], [place] [address] Technical component performed at [facility], [address] [place] [address] Ave[address], [place], [address]
== END 2016-12-27 23:59 | disposition home or self-care (01) ==
LOC: SAS 05:33
PROVIDERS: ATTEND Surgery
PROC: BF001ZZ Plain Radiography of Bile Ducts using Low Osmolar Contrast (ICD-10-PCS; 2016-12-27)
PROC: 0FT44ZZ Resection of Gallbladder, Percutaneous Endoscopic Approach (ICD-10-PCS; principal; 2016-12-27 07:30)
DX: K80.10 Calculus of gallbladder with chronic cholecystitis without obstruction (principal); F17.200 Nicotine dependence, unspecified, uncomplicated
CPT/HCPCS: 47563; 74300; 88304; J0330; J0690; J1100; J2250; J2405; J2710; J3010; J7120; Q9967